=== PATIENT | female | born 1970 | race Caucasian/White ===

== ENCOUNTER 2016-08-12 15:38 | Emergency (ER) | payer BC ==
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
[2016-08-12] MEDS ORDERED: OXYCODONE-ACETAMINOPHEN 5-325 MG TABLET PO ONE (17:21)
[2016-08-12] MEDS ORDERED: KETOROLAC TROMETHAMINE 10 MG TABLET PO ONE (19:14)
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
[2016-08-12 19:37] VITALS: BP 149/84
== END 2016-08-12 19:37 | disposition home or self-care (01) ==
LOC: ER 15:38
DX: R51 Headache (principal); F17.210 Nicotine dependence, cigarettes, uncomplicated
CPT/HCPCS: 99284; 70450; J3490

== ENCOUNTER 2016-10-27 08:02 | Emergency (ER) | payer BC ==
[2016-10-27] MEDS ORDERED: OXYCODONE-ACETAMINOPHEN 5-325 MG TABLET PO ONE (08:57)
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
[2016-10-27 09:53] VITALS: BP 153/95
== END 2016-10-27 09:56 | disposition home or self-care (01) ==
LOC: ER 08:02
DX: M54.42 Lumbago with sciatica, left side (principal); R03.0 Elevated blood-pressure reading, without diagnosis of hypertension; M54.5 Low back pain; F17.200 Nicotine dependence, unspecified, uncomplicated
CPT/HCPCS: 99283

== ENCOUNTER 2017-02-23 15:20 | Emergency (ER) | payer BC ==
[2017-02-23] MEDS ORDERED: DEXAMETHASONE SOD PHOS INJ 10 MG/1 ML VIAL IM ONE (16:27)
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
[2017-02-23] MEDS ORDERED: LIDOCAINE 5% (700 MG) TRANSDERMAL ADH..PATCH TP ONE (16:36)
--- NOTE | 2017-02-23 17:17 | RADIOLOGY REPORT (SQ) ---
EXAM DESCRIPTION: L SPINE WHOLE COMPLETED DATE/TIME: 02/23/2017 5:04 pm REASON FOR STUDY: LBP s/p injury COMPARISON: None. NUMBER OF VIEWS: Five views including obliques. TECHNIQUE: AP, lateral, oblique, and sacral radiographic images acquired of the lumbar spine. LIMITATIONS: None. FINDINGS: MINERALIZATION: Normal. SEGMENTATION: Normal. No transitional anatomy. ALIGNMENT: Normal. VERTEBRAE: Anterior wedge compression deformities of the T11 and T12 vertebral bodies. Vertebral bod y heights otherwise maintained. DISCS: Multilevel disc space narrowing with osteophytes. POSTERIOR ELEMENTS: Pedicles and facets are intact. No pars defect or posterior arch defects. Facet arthropathy is present. HARDWARE: None in the spine. PARASPINAL SOFT TISSUES: Normal. PELVIS: Intact as visualized. No fractures or worrisome bone lesions. SI joints intact. OTHER: No other significant finding. IMPRESSION: ANTERIOR WEDGE COMPRESSION DEFORMITIES OF THE T11 AND T12 VERTEBRAL BODIES WHICH ARE AGE INDETERMINATE. CORRELATE WITH LEVEL OF PAIN. ADDITIONAL DEGENERATIVE CHANGE ABOVE. TECHNICAL DOCUMENTATION: JOB ID: [id number] [employer]- All Rights Reserved
[2017-02-23 18:01] VITALS: BP 162/85
== END 2017-02-23 18:18 | disposition home or self-care (01) ==
LOC: ER 15:20
DX: M54.5 Low back pain (principal); G89.29 Other chronic pain; Z87.891 Personal history of nicotine dependence
CPT/HCPCS: 99283; 96372; 72110; J1100